=== PATIENT | female | born 1960 | race African-American/Black ===

== ENCOUNTER 2019-07-04 12:46 | Emergency (ER) | payer SELFPAY ==
[~2019-07-04] VITALS: Ht 170.2 cm; Wt 68.0 kg
--- NOTE | 2019-07-04 12:49 | NUR ---
called for triage. pt not in waiting room.
[2019-07-04 13:17] VITALS: BP 134/76
[2019-07-04] MEDS ORDERED: Methocarbamol 500mg tab ORAL ONE (14:00)
[2019-07-04] MEDS ORDERED: Ketorolac 30mg Inj IM ONE (14:00)
--- NOTE | 2019-07-04 14:03 | Emergency Room Report ---
History of Present Illness General Chief Complaint: Pain Source: Patient Present Illness HPI 59 YO Female presents to the ED c/o 11/01 in severity Right shoulder and arm pain. Pt. reports waking up with middle finger "stuck/tight" in the flexed position which resolved with massage. Pt. reports she felt several clicking sensations in the middle finger as well. Pt. reports finger symptoms x 2 days. She states Shoulder, and upper arm pain since this am. She reports some increased strenuous activity around the house the last few days. She denies trauma or fall. She denies bruising, paresthesias or loss of gross motor movements. Pt. reports pain radiates up the arm to the shoulder when she squeezes anywhere on the right UE including forearm & wrist. She denies erythema or warmth. She reports Pmhx of cardiac TX x 5 and reports being on Plavix as well as HTN medications, atorvastatin and daily multi-vitamin. Pt. reports she took a friends Flexeril this am with no relief of her symptoms. She denies neck or back pain. She reports pain exacerbated with attempts to brush her teeth or her hair. She is right hand dominant. She denies smoking. Denies CP, Palpitations, LOC, AMS, dizziness, Changes in Vision, Sensation/paresthesias , loss of gross motor movement or abnormal weakness, or a sudden severe headache. Allergies: Uncoded Allergies: CODEIN (Allergy, Unknown, 07/04/19) COVID-19 Screening Contact w/high risk pt: No Recent Travel to affected area: No Experienced COVID-19 symptoms?: No Patient History Past Medical History: see triage record, HTN, [place] Past Surgical History: other - TX surgery Pertinent Family History: none Now: No Reviewed Nursing Documentation: PMH: Agreed; PSxH: Agreed Nursing Documentation-PMH Past Medical History: No History, Except For Hx Cardiac Problems: Yes - heartattack 5 times since 2002. Review of Systems All Other Systems: negative except mentioned in HPI Physical Exam Vital Signs Date Time Temp Pulse Resp B/P (MAP) Pulse Ox O2 Delivery O2 Flow Rate FiO2 07/04/19 12:57 97.7 79 17 134/76 (95) 96 Room Air Sp02 EP Interpretation: reviewed, normal General Appearance: no apparent distress, alert, GCS 15, non-toxic Head: normocephalic, atraumatic Eyes: bilateral eye normal inspection, bilateral eye PERRL ENT: hearing grossly normal, normal voice Neck: full range of motion, no bony tend Respiratory: chest non-tender, lungs clear, normal breath sounds, no wheezing, speaking full sentences Cardiovascular #1: regular rate, rhythm, no edema, normal capillary refill Cardiovascular #2: 2+ radial (R), 2+ radial (L) Musculoskeletal: back normal, normal range of motion, gait/station normal, tender - extreme tenderness to the lightest of palpation to exam to all muscles on the UE and the right trapezius. Pain with ROM of Right shoulder, no clicking , pain at the 75* point of elevation. Pt. has most tenderness in the right deltoid. Neurologic: alert, motor strength/tone normal, oriented x3, sensory intact, responsive, speech normal, grossly normal, other - no motor weakness Psychiatric: judgement/insight normal Skin: no rash Medical Decision Making PA Attestation Dr. Arias is my supervising Physician whom patient management has been discussed with. Diagnostic Impression: Primary Impression: Radicular pain in right arm Additional Impression: Muscle spasm of right shoulder ER Course 59 YO Female presents to the ED c/o 11/01 in severity Right shoulder and arm pain. Pt. reports waking up with middle finger "stuck/tight" in the flexed position which resolved with massage. Pt. reports she felt several clicking sensations in the middle finger as well. Pt. reports finger symptoms x 2 days. She states Shoulder, and upper arm pain since this am. She reports some increased strenuous activity around the house the last few days. She denies trauma or fall. She denies bruising, paresthesias or loss of gross motor movements. Pt. reports pain radiates up the arm to the shoulder when she squeezes anywhere on the right UE including forearm & wrist. She denies erythema or warmth. She reports Pmhx of cardiac TX x 5 and reports being on Plavix as well as HTN medications, atorvastatin and daily multi-vitamin. Pt. reports she took a friends Flexeril this am with no relief of her symptoms. She denies neck or back pain. She reports pain exacerbated with attempts to brush her teeth or her hair. She is right hand dominant. She denies smoking. Denies CP, Palpitations, LOC, AMS, dizziness, Changes in Vision, Sensation/paresthesias , loss of gross motor movement or abnormal weakness, or a sudden severe headache. Ddx considered but are not limited to Fracture, dislocation, contusion, Sprain/ Strain/Spasm, upper extremity DVT, pinched nerve/neuropathy, radiculopathy, trigger finger, electrolyte abnormality just to name a few. Vital signs: are WNL, pt. is afebrile H&PE are most consistent with musculoskeletal injury will perform imaging to r/ o fractures/dislocations. Highly suspect muscle spasm and radiculopathy given extreme tenderness not proportional to exam to any muscle on the UE. Pt. reports pain not c/w symptoms of her previous TX's. ORDERS: - X-ray Right Shoulder 3 views - negative for fx, Dislocation, or significant soft tissue injury, per preliminary read in ED, and signed by ASTRID Soria, my supervising physician has reviewed, and agrees with my interpretation. ED INTERVENTIONS: -Robaxin PO -Toradol IM -Lidoderm TP. DISCHARGE: At this time pt. is stable for d/c to home. Will provide printed patient care instructions, and any necessary prescriptions. Care plan and follow up instructions have been discussed with the patient prior to discharge. Other X-Ray Diagnostic Results Other X-Ray Diagnostic Results : X-Ray ordered: Right Shoulder # of Views/Limited Vs Complete: 3 View Indication: Pain EP Interpretation: Yes PA Xray: Interpretation reviewed, by supervising MD, and agrees with findings. Interpretation: no dislocation, no soft tissue swelling, no fractures Impression: No acute disease Electronically Signed by: Diana Soria PA-C Last Vital Signs Date Time Temp Pulse Resp B/P (MAP) Pulse Ox O2 Delivery O2 Flow Rate FiO2 07/04/19 13:17 97.7 17 134/76 96 Room Air 07/04/19 12:57 79 Disposition: HOME, SELF-CARE Condition: Stable Scripts Methocarbamol* (ROBAXIN-750*) 750 Mg Tablet 750 MG PO QID for 7 Days, #28 TAB 0 Refills Prov: Diana Soria 07/04/19 Acetaminophen* (TYLENOL EXTRA STRENGTH*) 500 Mg Tablet 500 MG ORAL Q6H, #20 TAB 0 Refills Prov: Diana Soria 07/04/19 Lidocaine Patch* (Lidoderm Patch*) 1 Each Adh..patch 1 PATCH TOPIC DAILY, #30 PATCH 0 Refills Patch(es) may remain in place for up to 12 hours in any 24-hour period. Prov: Diana Soria 07/04/19 Referrals: [facility] De Jesus [facility] Patient Instructions: Radicular Pain Additional Instructions: Take medications as directed. !!! Do not drink alcohol, drive, or operate heavy machinery while taking ROBAXIN ( MUSCLE RELAXER ) as this may cause drowsiness. Follow up with a Primary Care Provider in 3-5 days, even if your symptoms have resolved. If symptoms persist Recommend NEUROLOGY EVALUATION REFERRAL, by your PCP --Please review list of primary care clinics, if you do not already have a primary care provider Return sooner to ED if new symptoms occur, or current symptoms become worse. - Please note that this Emergency Department Report was dictated using [employer] truck driver technology software, occasionally this can lead to erroneous entry secondary to interpretation by the dictation equipment. Diana Soria July 04, 2019 14:03
[2019-07-04] MEDS ORDERED: ROBAXIN-750750 MG PO (15:06)
[2019-07-04] MEDS ORDERED: LIDODERM700 M1 TOPIC (15:06)
[2019-07-04] MEDS ORDERED: TYLENOL EXTRA500 MG ORAL (15:06)
[2019-07-04 15:19] VITALS: BP 125/86
--- NOTE | 2019-07-04 15:21 | NUR ---
ER DISCHARGE NOTE: Patient is cleared to be discharged per ERMD, pt is aox4, on room air, with stable vital signs. pt was given dc and prescription instructions, pt was able to verbalize understanding, pt id band removed without complications. pt is able to ambulate with steady gait. pt took all belongings.
== END 2019-07-04 15:19 | disposition home or self-care (01) ==
LOC: EMR 13:28
DX: M54.10 Radiculopathy, site unspecified (principal); M62.838 Other muscle spasm; I10 Essential (primary) hypertension; I25.2 Old myocardial infarction; Z88.5 Allergy status to narcotic agent
CPT/HCPCS: 73030; 96372; 99283; J1885

== ENCOUNTER 2019-07-07 11:38 | Emergency (ER) | payer SELFPAY ==
[~2019-07-07] VITALS: Ht 170.2 cm; Wt 68.0 kg
[~2019-07-07 11:38] MED LIST: LIDODERM700 M1 TOPIC; ROBAXIN-750750 MG PO; TYLENOL EXTRA500 MG ORAL
--- NOTE | 2019-07-07 11:52 | NUR ---
rmED Nurse Note: Pt walked into ED for c/o R shoulder and arm. Pt is alert and orientedx4, ambulatory. Pt has previously been to [place] ER for same pain. She states prescriptions weren't helping and can't sleep. Pain is 10/10.
[2019-07-07 11:56] VITALS: BP 110/65
--- NOTE | 2019-07-07 12:55 | NUR ---
ED Nurse Note: ALIX is assessing the pt at this time in room
--- NOTE | 2019-07-07 13:08 | NUR ---
ED Nurse Note: medication given as ordered.
[2019-07-07] MEDS ORDERED: HYDROcodone/Acetamin 5/325 tab ORAL ONE (13:15)
--- NOTE | 2019-07-07 14:07 | Diagnostic Imaging Report ---
Indication: Shoulder pain Technique: XRAY Shoulder Compl R Comparison: 07/04/2019 Findings: Bone mineralization within normal limits. There is no acute fracture or dislocation. Amorphous calcifications are suggested adjacent to the head of the humerus suggesting calcific tendinitis. Imaged portions of the right likely. Coronary arterial stents are incidentally noted. Impression: Findings suggesting calcific tendinitis of the right shoulder. No acute fracture or dislocation.
--- NOTE | 2019-07-07 14:33 | Emergency Room Report ---
History of Present Illness General Chief Complaint: Pain Source: Patient Present Illness HPI This patient states she was seen here previously. She states that 3 days ago she woke up with severe shoulder pain. She was seen here and underwent an x- ray that was unremarkable. She states she still has a significant amount of pain. She states she is unable to even move her right shoulder. She denies trauma. She denies fever chills. She has nausea or vomiting. She has no other complaints. Allergies: Uncoded Allergies: CODEIN (Allergy, Unknown, 07/04/19) COVID-19 Screening Contact w/high risk pt: No Recent Travel to affected area: No Experienced COVID-19 symptoms?: No COVID-19 Testing performed RN OR LVN: No - 04/13/19 COVID-19 Screening: Negative COVID-19 COVID-19 Testing Source: [facility] Patient History Past Medical History: see triage record, [place], CAD Social History: Reports: smoking; Denies: alcohol use, drug use Now: No Reviewed Nursing Documentation: PMH: Agreed; PSxH: Agreed Nursing Documentation-PMH Hx Cardiac Problems: Yes - heartattack 5 times since 2002. Review of Systems All Other Systems: negative except mentioned in HPI Physical Exam Vital Signs Date Time Temp Pulse Resp B/P (MAP) Pulse Ox O2 Delivery O2 Flow Rate FiO2 07/07/19 11:43 98.2 91 18 107/69 (82) 96 Room Air Sp02 EP Interpretation: reviewed, normal General Appearance: no apparent distress, alert, GCS 15, non-toxic Head: normocephalic, atraumatic Eyes: bilateral eye normal inspection, bilateral eye PERRL ENT: hearing grossly normal, normal pharynx, no angioedema, normal voice Neck: full range of motion, supple/symm/no masses Respiratory: no respiratory distress, no retraction, no accessory muscle use, speaking full sentences Rectal: deferred Musculoskeletal: normal inspection, back normal, gait/station normal, tender - Pain and tenderness with any movement of the R. shoulder joint. Neurologic: alert, motor strength/tone normal, oriented x3, sensory intact, responsive, speech normal Psychiatric: judgement/insight normal, memory normal, mood/affect normal, no suicidal/homicidal ideation Skin: no rash, normal color Medical Decision Making Diagnostic Impression: Primary Impression: Calcific tendinitis ER Course This patient has findings on x-ray consistent with calcific tendinitis. X-ray of the shoulder shows no fracture or dislocation. The patient was instructed that she will need to follow-up closely with an orthopedic surgeon. She may need steroid injections in the shoulder and further assessment to limit the possibility of frozen shoulder. There is no emergency medical condition identified. I will give the patient pain medications and anti-inflammatories, in addition to muscle relaxants. The patient is given close return precautions and follow-up instructions. Other X-Ray Diagnostic Results Other X-Ray Diagnostic Results : X-Ray ordered: R. shoulder # of Views/Limited Vs Complete: Complete Indication: Pain EP Interpretation: Yes Interpretation: other - R. calcific tendinitis Impression: No acute disease Electronically Signed by: DO ASTRID Abel Scribe Text See official report in the EMR Last Vital Signs Date Time Temp Pulse Resp B/P (MAP) Pulse Ox O2 Delivery O2 Flow Rate FiO2 07/07/19 13:37 98.2 07/07/19 11:56 68 16 110/65 98 Room Air Status: improved Disposition: HOME, SELF-CARE Condition: Improved Referrals: NOT CHOSEN IPA/,REFERRING (PCP) Farzana Decker DO July 07, 2019 14:33
[2019-07-07] MEDS ORDERED: IBUPROFEN800 MG ORAL (14:38)
[2019-07-07] MEDS ORDERED: CYCLOBENZAPRINE10 MG ORAL (14:38)
[2019-07-07] MEDS ORDERED: NORCO 5-325 TA1 EAC1 ORAL (14:38)
[2019-07-07 14:45] VITALS: BP 113/61
--- NOTE | 2019-07-07 14:45 | NUR ---
ER DISCHARGE NOTE: Patient is cleared to be discharged per ERMD, pt is aox4, on room air, with stable vital signs. pt was given dc and prescription instructions, pt was able to verbalize understanding, pt id band removed. pt is able to ambulate with steady gait. pt took all belongings.
== END 2019-07-07 14:46 | disposition home or self-care (01) ==
LOC: EMR 12:12
DX: M75.31 Calcific tendinitis of right shoulder (principal); Z88.6 Allergy status to analgesic agent; F17.200 Nicotine dependence, unspecified, uncomplicated; I25.2 Old myocardial infarction
CPT/HCPCS: 99283